=== PATIENT | male | born 1960 | race Caucasian/White ===

== ENCOUNTER 2021-04-12 08:05 | Emergency (ER) | payer OTHER ==
[~2021-04-12 08:05] MED LIST: BUSPIRONE HCL15 MG PO; CATAPRES0.1 MG PO; FLEXERIL10 MG PO; FLOMAX0.4 MG PO; PRILOSEC20 MG PO; VOLTAREN **OUT50 MG PO
[2021-04-12 09:02] LABS: BASOPHIL 0.9 % (0-2); EOSINOPHIL 2.3 % (0-5); HCT 40.4 % (42.0-52.0); HGB 13.7 g/dl (13.2-18.0); LYMPHOCYTE 32.1 % (15-48); MCH 32.9 pg (25.0-31.0); MCHC 33.9 g/dL (32.0-36.0); MCV 96.9 fL (78.0-100.0); MONOCYTE 8.5 % (0-12); MPV 8.4 fL (6.0-9.5); NEUTROPHIL 55.8 % (41-80); NRBC 0; PLT 223 K/uL (150-400); RBC 4.17 M/uL (4.70-6.00); RDW 12.3 % (11.5-14.0); WBC 8.2 K/uL (4.0-10.5)
[2021-04-12 09:18] LABS: BILIRUBIN - TOTAL 0.4 mg/dL (0.2-1.0); BUN/CREAT RATIO (CALC) 13.7 RATIO; CREATININE 1.17 mg/dL (0.67-1.17); GLOBULIN (CALCULATION) 3.7 g/dL; POTASSIUM 4.1 mmol/L (3.5-5.1); TOTAL PROTEIN 6.7 g/dL (6.4-8.2)
[2021-04-12] MEDS ORDERED: PREDNISONE 20MG20 MG PO (11:28)
== END 2021-04-12 11:45 | disposition home or self-care (01) ==
LOC: FER 08:05
PROVIDERS: Internal Medicine
DX: R59.0 Localized enlarged lymph nodes (principal); K08.89 Other specified disorders of teeth and supporting structures; I10 Essential (primary) hypertension; J44.9 Chronic obstructive pulmonary disease, unspecified; Z86.16 Personal history of COVID-19
CPT/HCPCS: 36415; 70486; 70491; 80053; 84145; 85025; J2930